=== PATIENT | male | born 1955 | race Hispanic/Latino ===

== ENCOUNTER → 2023-01-17 | Outpatient (CLI) | payer OTHER ==
[~2023-01-17] MED LIST: AMIO200T68 PO; DIGO250T13 PO; DIGO250T73 PO; LISI2.5T13 PO; METF-444 PO; METO-409 PO; SPIR25TA6 PO; WARF5TAB8 PO
== END | disposition home or self-care (01) ==
LOC: SHCH 14:17
PROVIDERS: ATTEND Student in an Organized Health Care Education/Training Program
DX: I11.0 Hypertensive heart disease with heart failure (principal); I50.22 Chronic systolic (congestive) heart failure; I35.8 Other nonrheumatic aortic valve disorders; E11.9 Type 2 diabetes mellitus without complications
CPT/HCPCS: 93306

== ENCOUNTER → 2023-09-23 | Outpatient (CLI) | payer OTHER ==
[2023-09-23 21:43] VITALS: PULSE 99; RESP 18
[2023-09-23 22:00] VITALS: PULSE 95; RESP 20
[2023-09-23 22:37] VITALS: PULSE 92; RESP 22
[2023-09-23 22:59] VITALS: PULSE 87; RESP 22
[2023-09-23 23:30] VITALS: PULSE 62; RESP 22
[2023-09-23 23:58] VITALS: PULSE 113; RESP 22
[2023-09-24] VITALS (21 sets, daily range): PULSE 49–111; RESP 8–26
== END | disposition home or self-care (01) ==
LOC: SLP 19:49
PROVIDERS: ATTEND Student in an Organized Health Care Education/Training Program
DX: G47.33 Obstructive sleep apnea (adult) (pediatric) (principal)
CPT/HCPCS: 95811